=== PATIENT | female | born 1945 | race African-American/Black ===

== ENCOUNTER 2017-09-07 03:09 | Emergency (ER) | payer OTHER, BC ==
[2017-09-07 03:31] VITALS: BP 156/98; PULSE 78; TEMP 97.9; BMI 29.4
[2017-09-07] MEDS ORDERED: SODIUM CHLORIDE 0.9% 500 ML INFUS.BAG IV ONE (04:41)
--- NOTE | 2017-09-07 04:41 | PDOC ---
History of Present Illness - General History Source: Patient Exam Limitations: No Limitations - History of Present Illness Initial Comments: 09/07/17 06:01 Patient is a 72 year old female with a significant past medical history of thyroid problems, who presents to the ED with complaints of diffuse abdominal pain that began evening while at home. Patient reports eating a ham and cheese sandwich, stating she began to experience diffuse abdominal pain and associated diarrhea shortly after finishing the sandwich. She reports the symptoms continued all day saturday, prompting her to come into the ED for further evaluation. Denies chest pain, Sob. Denies nausea, vomiting. Denies contact with sick individuals, out of state travelling, Denies fevers, chills. Denies any other symptoms. Allergies: None Social history: No alcohol. No illicit drugs. No smoking. Surgical history: . Colonoscopy. PMD: dr. Josh Laguna <Evelio Yanes - Last Filed: 09/07/17 06:01> <Felicitas Tate - Last Filed: 09/07/17 20:35> - General Chief Complaint: Pain, Acute Stated Complaint: VOMITING, ABDOMINAL PAIN Time Seen by Provider: 09/07/17 04:11 Past History <Evelio Yanes - Last Filed: 09/07/17 06:01> - Suicide/Smoking/Psychosocial Hx Smoking History: Never smoked Have you smoked in the past 12 months: No Information on smoking cessation initiated: No Hx Alcohol Use: No Drug/Substance Use Hx: No <Felicitas Tate - Last Filed: 09/07/17 20:35> - Past Medical History Allergies/Adverse Reactions: Allergies Allergy/AdvReac Type Severity Reaction Status Date / Time No Known Allergies Allergy Verified 09/07/17 03:28 Home Medications: Ambulatory Orders Aspirin [Aspirin EC] 81 mg PO DAILY 09/07/17 Levothyroxine [Synthroid -] 75 mcg PO DAILY 09/07/17 Rosuvastatin [Crestor -] 5 mg PO DAILY 09/07/17 Review of Systems - Review of Systems Able to Perform ROS?: Yes Comments:: 09/07/17 06:01 GENERAL/CONSTITUTIONAL: No fever or chills. No weakness. HEAD, EYES, EARS, NOSE AND THROAT: No change in vision. No ear pain or discharge. No sore throat. CARDIOVASCULAR: No chest pain or shortness of breath. RESPIRATORY: No cough, wheezing, or hemoptysis. GASTROINTESTINAL: +Abdominal pain. +Diarrhea. No nausea, vomiting or constipation. GENITOURINARY: No dysuria, frequency, or change in urination. MUSCULOSKELETAL: No joint or muscle swelling or pain. No neck or back pain. SKIN: No rash NEUROLOGIC: No headache, vertigo, loss of consciousness, or change in strength/ sensation. ENDOCRINE: No increased thirst. No abnormal weight change. HEMATOLOGIC/LYMPHATIC: No anemia, easy bleeding, or history of blood clots. ALLERGIC/IMMUNOLOGIC: No hives or skin allergy. <Evelio Yanes - Last Filed: 09/07/17 06:01> *Physical Exam - Vital Signs Last Vital Signs Temp Pulse Resp BP Pulse Ox 97.9 F 78 20 156/98 99 09/07/17 03:28 09/07/17 03:28 09/07/17 03:28 09/07/17 03:28 09/07/17 03:28 - Physical Exam Comments: 09/07/17 06:01 GENERAL: Awake, alert, and fully oriented, in no acute distress HEAD: No signs of trauma EYES: PERRLA, EOMI, sclera anicteric, conjunctiva clear ENT: Auricles normal inspection, hearing grossly normal, nares patent, oropharynx clear without exudates. Moist mucosa NECK: Normal ROM, supple, no lymphadenopathy, JVD, or masses LUNGS: Breath sounds equal, clear to auscultation bilaterally. No wheezes, and no crackles HEART: Regular rate and rhythm, normal S1 and S2, no murmurs, rubs or gallops ABDOMEN: Soft, nontender, normoactive bowel sounds. No guarding, no rebound. No masses EXTREMITIES: Normal range of motion, no edema. No clubbing or cyanosis. No cords, erythema, or tenderness NEUROLOGICAL: Cranial nerves II through XII grossly intact. Normal speech, normal gait SKIN: Warm, Dry, normal turgor, no rashes or lesions noted. <Evelio Yanes - Last Filed: 09/07/17 06:01> - Vital Signs Last Vital Signs Temp Pulse Resp BP Pulse Ox 97.9 F 78 20 156/98 99 09/07/17 03:28 09/07/17 03:28 09/07/17 03:28 09/07/17 03:28 09/07/17 03:28 <Felicitas Tate - Last Filed: 09/07/17 20:35> ED Treatment Course - LABORATORY CBC & Chemistry Diagram: 09/07/17 05:50 09/07/17 05:50 <Felicitas Tate - Last Filed: 09/07/17 20:35> Medical Decision Making - Medical Decision Making 09/07/17 20:34 Pt comes with food posoning. Better in the ER with treatment and normal labs. Stable for d/c home. <Felicitas Tate - Last Filed: 09/07/17 20:35> *DC/Admit/Observation/Transfer - Attestations Scribe Attestion: 09/07/17 06:02 Documentation prepared by Evelio Yanes, acting as medical transcriber for Felicitas Tate MD/DO. <Evelio Yanes - Last Filed: 09/07/17 06:01> - Discharge Dispostion Admit: No <Felicitas Tate - Last Filed: 09/07/17 20:35> Diagnosis at time of Disposition: Food poisoning - Discharge Dispostion Disposition: HOME Condition at time of disposition: Improved - Referrals Referrals: Josh Laguna MD [Primary Care Provider] - - Patient Instructions Printed Discharge Instructions: DI for Food Poisoning - Post Discharge Activity
[2017-09-07] MEDS ORDERED: FAMOTIDINE 20 MG/50 ML IVPB 20 MG/50 ML MG IVPB ONE (05:34)
[2017-09-07 06:08] LABS: BASO % 0.6 % (0-2.0); EOS % 3.4 % (0-4.5); HEMATOCRIT 35.9 % (32.4-45.2); HEMOGLOBIN 12.4 GM/dL (10.7-15.3); MCH 29.3 pg (25.7-33.7); MCHC 34.4 g/dl (32.0-36.0); MEAN CELL VOLUME 85.2 fl (80-96); MEAN PLT VOLUME 8.4 fl (7.5-11.1); MONO % 7.3 % (3.8-10.2); NEUT % 66.7 % (42.8-82.8); PLATELET COUNT 259 K/MM3 (134-434); RBC 4.21 M/mm3 (3.60-5.2); RDW 15.9 % (11.6-15.6); URINE APPEARANCE CLEAR; URINE BILIRUBIN NEGATIVE (<2.0 mg/dL); URINE COLOR YELLOW; URINE GLUCOSE (UA) NEGATIVE (NEGATIVE); URINE KETONE NEGATIVE (NEGATIVE); URINE LEUK ESTERASE TRACE (NEGATIVE); URINE NITRITE NEGATIVE (NEGATIVE); URINE PROTEIN NEGATIVE (NEGATIVE); URINE UROBILINOGEN NEGATIVE mg/dL (0.2-1.0); WHITE BLOOD COUNT 10.5 K/mm3 (4.0-10.0)
[2017-09-07 06:12] LABS: EPI CELLS RARE /HPF (FEW); URINE MUCUS RARE
[2017-09-07 06:32] LABS: ALBUMIN 3.6 g/dl (3.4-5.0); ANION GAP 4 (8-16); BILIRUBIN,TOTAL 0.4 mg/dL (0.2-1.0); BLOOD UREA NITROGEN 13 mg/dL (7-18); CALCIUM 8.3 mg/dL (8.5-10.1); CHLORIDE 111 mmol/L (98-107); CO2 28 mmol/L (21-32); CREATININE 0.8 mg/dL (0.55-1.02); GLUCOSE,RANDOM 101 mg/dL (74-106); POTASSIUM 3.9 mmol/L (3.5-5.1); SGOT/AST 15 U/L (15-37); SGPT/ALT 24 U/L (12-78); SODIUM 143 mmol/L (136-145); TOT PROT 6.6 g/dl (6.4-8.2)
[2017-09-07 06:33] LABS: ALK PHOS 82 U/L (45-117)
[2017-09-07] MEDS ORDERED: LOPERAMIDE HCL 2 MG CAPSULE ONE (06:50)
[2017-09-07] MEDS ORDERED: LOPERAMIDE HCL 2 MG CAPSULE PO ONE (06:50)
[2017-09-07] MEDS ORDERED: FAMOTIDINE IV 20 MG/12 ML VIAL IVPUSH SCH (10:00)
== END 2017-09-07 07:00 | disposition home or self-care (01) ==
LOC: JER 03:09
PROC: 3E033GC Introduction of Other Therapeutic Substance into Peripheral Vein, Percutaneous Approach (ICD-10-PCS; principal; 2017-09-07)
DX: T62.8X1A Toxic effect of other specified noxious substances eaten as food, accidental (unintentional), initial encounter (principal); R10.9 Unspecified abdominal pain; R19.7 Diarrhea, unspecified; R11.0 Nausea; Y92.010 Kitchen of single-family (private) house as the place of occurrence of the external cause
CPT/HCPCS: 36415; 80053; 81003; 81015; 83690; 85025; 87086; 96365; 99281-25; 99283-25

== ENCOUNTER 2020-01-22 06:36 | Day surgery (SDC) | payer OTHER, BC ==
--- OUTSIDE RECORDS SUMMARY | 2020-01-18 15:07 | XMS ---
:1945 Author Organization [facility] Support Name Relationship Address Phone RE Unavailable Unavailable Unavailable SHALOM ORELLANA [address] [place] [address] Re-disclosure Warning The records that you are about to access may contain information from federally- assisted alcohol or drug abuse programs. If such information is present, then the following federally mandated warning applies: This information has been disclosed to you from records protected by federal confidentiality rules (42 CFR part 2). The federal rules prohibit you from making any further disclosure of this information unless further disclosure is expressly permitted by the written consent of the person to whom it pertains or as otherwise permitted by 42 CFR part 2. A general authorization for the release of medical or other information is NOT sufficient for this purpose. The Federal rules restrict any use of the information to criminally investigate or prosecute any alcohol or drug abuse patient.The records that you are about to access may contain highly sensitive health information, the redisclosure of which is protected by Article 27-F of the [facility] Public Health law. If you continue you may haveaccess to information: Regarding HIV / AIDS; Provided by facilities licensed or operated by the [facility] Office of Mental Health; or Provided by the [facility] Office for People With Developmental Disabilities. If such information is present, then the following [facility] mandated warning applies: This information has been disclosed to you from confidential records which are protected by state law. State law prohibits you from making any further disclosure of this information without the specific written consent of the person to whom it pertains, or as otherwise permitted by law. Any unauthorized further disclosure in violation of state law may result in a fine or correction sentence or both. A general authorization for the release of medical or other information is NOT sufficient authorization for further disclosure. Insurance Providers Payer name Policy type Policy ID Covered Covered green party's Policy P roland / Coverage green party ID relationship to [place] [facility] ormation type murray MEDICARE [id number] SP [id number] BC PPO [id number] SP [id number] GHI CBP [id number] SP [id number] 01 OUTPT 1 BC PPO [id number] SP [id number] MEDICARE [id number] SP [id number] A MEDICARE [id number] SP [id number] Results ID Date Data Source [id number] 11/30/2019 12:00:00 AM EDT [facility] Name Value Range Interpretation Code Description Data [place] rce(s) Supporting Document(s ) 2019-nCoV [facility] RNA XXX HANY+probe- Imp This lab was ordered by [facility] and reported by [employer] [facility]. Procedure Social History Code Duration Value Status Description Data Source(s ) Smoking Unknown if ever completed Unknown if ever Nael Tinoco smoked [facility]
--- OUTSIDE RECORDS SUMMARY | 2020-01-22 06:40 | XMS ---
:1945 Author Organization [facility] Support Name Relationship Address Phone RE, RETIRED Unavailable Unavailable Unavailable RE Unavailable Unavailable Unavailable SHALOM ORELLANA [address] [facility] [phone] [place] [phone] Re-disclosure Warning The records that you are [...] is protected by Article 27-F of the [facility] Public Health law. If you continue you may haveaccess to information: Regarding HIV / AIDS; Provided by facilities licensed or operated by the [facility] Office of Mental Health; or Provided by the [facility] Office for People With Developmental Disabilities. If such information is present, then the following [facility] mandated warning applies: This information has been [...] law may result in a fine or assisted sentence or both. A general authorization for the release of medical or other information is NOT sufficient authorization for further disclosure. Insurance Providers Payer name Policy type Policy ID Covered Covered constitution party's Policy P roland / Coverage constitution party ID relationship to [facility] [employer] ormation type robert MEDICARE [id number] SP [id number] BC PPO [id number] SP [id number] GHI CBP [id number] SP [id number] 01 OUTPT 1 BC PPO [id number] SP [id number] MEDICARE [id number] SP [id number] A MEDICARE [id number] SP [id number] Results ID Date Data Source [id number] 01/18/2020 03:15:00 PM EDT [facility] Name Value Range Interpretation Description Data Sup porting Code Source(s) Document(s ) SARS [facility] coronavirus 2 RNA This lab was ordered by [facility] and reported by [facility]. ID Date Data Source [id number] 11/30/2019 12:00:00 AM EDT [facility] Name Value Range Interpretation Code Description Data [place] rce(s) Supporting Document(s ) 2019-nCoV [facility] RNA XXX HANY+probe- Imp This lab was ordered by [facility] and reported by [facility]. Procedure Social History Code Duration Value Status Description Data Source(s ) Smoking Unknown if ever completed Unknown if ever Nael Tinoco smoked [facility]
[2020-01-22 07:49] VITALS: BMI 29.0
[2020-01-22 07:50] LABS: BASO % 0.7 % (0-2.0); HEMATOCRIT 37.6 % (32.4-45.2); HEMOGLOBIN 12.3 GM/dl (10.7-15.3); LYMPH % 21.2 % (8-40); MCH 29.3 pg (25.7-33.7); MCHC 32.8 g/dl (32.0-36.0); MEAN CELL VOLUME 89.3 fl (80-96); MEAN PLT VOLUME 8.4 fl (7.5-11.1); MONO % 5.3 % (3.8-10.2); NEUT % 67.8 % (42.8-82.8); PLATELET COUNT 306 K/MM3 (134-434); RBC 4.21 M/mm3 (3.60-5.2); RDW 14.9 % (11.6-15.6); WHITE BLOOD COUNT 7.6 K/mm3 (4.0-10.8)
[2020-01-22] MEDS ORDERED: ROPIVACAINE HCL 0.5% 30ML VIAL ONE (07:52)
[2020-01-22] MEDS ORDERED: MIDAZOLAM HCL 2 MG/2 ML SINGLE DOSE VIAL ONE ×2 (07:52→11:10)
[2020-01-22] MEDS ORDERED: oxyCODONE HCL 5 MG TABLET PO PRN ×3 (08:32→12:15)
[2020-01-22] MEDS ORDERED: IBUPROFEN 400 MG TABLET (FP) PO PRN (08:32)
[2020-01-22] MEDS ORDERED: ACETAMINOPHEN 325 MG TABLET (FP) PO PRN (08:32)
--- NOTE | 2020-01-22 08:32 | HP ---
History & Physical Update - History History: No Change - Physical Physical: No Change (Repeat WBC 7) - Assessment Assessment: No Change - Plan Plan: No Change
[2020-01-22] MEDS ORDERED: KETOROLAC TROMETHAMINE 30 MG/1 ML VIAL ONE (08:56)
[2020-01-22] MEDS ORDERED: DEXAMETHASONE SOD PHOSPHATE 4 MG/1 ML VIAL ONE (08:56)
[2020-01-22] MEDS ORDERED: ceFAZolin SODIUM 1 GM VIAL ONE (08:56)
[2020-01-22] MEDS ORDERED: ONDANSETRON 4 MG/2 ML VIAL ONE (08:56)
[2020-01-22] MEDS ORDERED: BUPIVACAINE HCL/PF 0.25% (2.5MG/ML) 10 ML VIAL IJ ONE (09:45)
[2020-01-22] MEDS ORDERED: LABETALOL HCL 5 MG/1 ML (100MG/20 ML VIAL) ONE (10:40)
[2020-01-22 16:57] VITALS: PULSE 84; TEMP 98
[2020-01-22 17:04] VITALS: BP 118/72
--- NOTE | 2020-01-22 18:26 | OPR ---
Procedure: Right Shoulder- 1. Diagnostic arthroscopy. 2. Arthroscopic extensive debridement of glenohumeral joint (62686). 3. Arthroscopic subacromial decompression (72808). 4. Arthroscopic rotator cuff repair: Supraspinatus (58954). 5. Arthroscopic-assisted biceps tenodesis-subpectoral (65386). 6. Arthroscopic capsular release, lysis and resection of adhesions (81605). Preoperative Diagnoses: 1. Rotator cuff tear. 2. Biceps tendon degeneration. 3. Glenohumeral synovitis. 4. Glenohumeral arthritis. 5. AC joint arthrosis 6. Adhesive Capsulitis Postoperative Diagnoses: 1. Rotator cuff tear-Supraspinatus, 1.5 mm x 2 mm 2. Biceps tendon degeneration and tear. 3. Labral degeneration and fraying; SLAP tear. 4. Chondromalacia of the glenohumeral joint. 5. Glenohumeral synovitis. 6. Subacromial bursitis and adhesions. 7. AC joint arthrosis 8. Adhesive Capsulitis Surgeon: Chad Jamison DO Assistants: Neil Montanez DO Anesthesia: General anesthesia, IV regional with interscalene nerve block Estimated Blood Loss: Minimal Drains: None Total IV Fluids: Per anesthesia record Specimens: None Implants: Prado and Nephew- (2) 5.5mm Healicoil PEEK [place], triple loaded with sutures Complications: None Disposition: PACU Condition: Hemodynamically stable Indications: Andra Medrano presented to us with chronic right shoulder pain that failed conservative measures. Her symptoms, signs, and imaging were consistent with the above noted diagnoses. She ultimately elected to proceed with surgical intervention after discussion of the risks, benefits, alternatives. We discussed risks including but not limited to, bleeding, pain, infection, scarring, damage to neurovascular structures, blood clots, pulmonary embolus, need for additional surgery, incomplete relief of pain, and incomplete return of function. She expressed understanding and wished to proceed. She underwent preoperative medical evaluation clearance and optimization prior to surgery. Procedure Details: She was identified in the preoperative area. The right shoulder was marked as the operative site and consent was completed and confirmed. A member of the anesthesia department performed an interscalene block in the preoperative holding area. She was later transferred to the operating room and placed in supine position the operating room. General anesthesia was induced without difficulty. She was repositioned into beach chair with all bony prominences appropriately padded. The neck was in neutral alignment. A surgical time-out was performed identifying the correct patient, procedure, and site. Antibiotics were given within 1 hour prior to surgical incision. The upper extremity was prepped and draped in standard sterile fashion. Examination under anesthesia: Passive range of motion of the right shoulder showed forward elevation of 150, abduction 80, external rotation at side 30, SABER 75, SABIR 30. This was compared to her contralateral shoulder which shows forward elevation of 170, abduction 100 external rotation at side 60, SABER 90, SABIR 30. Diagnostic arthroscopy: We began the procedure with the standard posterolateral portal, entered the glenohumeral joint, and an anterior portal was made within the rotator cuff interval under direct visualization with the assistance of a spinal needle. A probe was used to assist with diagnostic arthroscopy and we visualized from both posteriorly and anteriorly. Evaluation of the glenohumeral joint showed severe synovitis anteriorly, posteriorly and superiorly. The superior labrum had a degenerative tear that was debrided back to a stable base. The anterior labrum was probed and found to be frayed, but intact. The posterior labrum was probed and found to be frayed, but intact. There were no loose bodies in the inferior pouch. There was no HAGL lesion. The biceps tendon showed hyperemia. The rotator cuff interval was scarred. The axillary recess was empty. The subscapularis showed partial tearing involving less than 50% of the tendon; this was debrided to a stable base. The supraspinatus tendon was found to be torn from the greater tuberosity. The articular surface of the infraspinatus and teres minor tendons were intact. The glenoid and humeral head showed areas of grade I, II and III chondromalacia on the glenoid, and areas of I, II and III changes on the humeral head. Evaluation of the subacromial space showed severe bursitis and adhesions. There was a small acromial spur anteriorly. There was fraying of the CA ligament. The AC joint was arthritic with no significant spurs. The supraspinatus was found to be torn from the tuberosity. Arthroscopic extensive debridement of the glenohumeral joint: We used a combination of the arthroscopic motorized shaver and radiofrequency device to perform an extensive debridement inside the glenohumeral joint anteriorly and posteriorly. The hyperemia, erythema, and synovitis of the joint and joint capsule was aggressively debrided both anteriorly and posteriorly. Synovitic fronds were thermally ablated. Chondral degeneration was debrided to a stable edge. Labral fraying and degeneration was also resected and debrided to a stable edge anteriorly and posteriorly. The biceps tendon was tenotomized as it inserted into the superior labral complex and the remaining portion of the biceps tendon was allowed to retract into the bicipital groove. Arthroscopic capsular release/lysis of adhesions: Visualizing from posteriorly initially, we used the radiofrequency device to ablate and remove the scar tissue starting with the rotator cuff interval. We stayed lateral to the labrum, released the scar to the lateral surface of the coracoid, and then proceeded more laterally across the rotator interval, ablating the scar tissue all the way to the biceps desmond region. The subscapularis tendon was identified and carefully protected. The scar above it including the ligaments and capsular tissue was ablated just lateral to the labral margin and the scar tissue was resected. We carefully made our way more inferiorly, and with increasing resection we were able to achieve increasing external rotation and visualization inferiorly. We proceeded to the 5 o'clock position under direct visualization with release of the capsular tissue. We visualized the muscular fibers and subscapularis beneath this and protected it. After this, we thoroughly irrigated the joint. We then ranged the arm under visualization. The arm remained stable. Passive range of motion showed forward elevation of 170, abduction 100, external rotation at side 60, SABER 90, SABIR 30. There was no instability and there was excellent release of the capsular tissues. Arthroscopic-assisted biceps tenodesis: We made a 2 cm incision along Tank's lines in the axillary fold. Sharp dissection was carried out down to the level of the pectoralis major. The plane between the pectoralis major and the short head of biceps tendon was developed bluntly down to the level of the humeral bone, where we identified the long head of biceps tendon and delivered it retrograde out of the wound. The underlying soft tissue was resected and the bone was frayed with a 1/4-inch osteotome. We then selected a 1.9 SutureFix anchor and placed the anchor high within the bicipital groove underneath the pectoralis major tendon. The sutures were then passed just proximal to the musculotendinous junction of the long head of biceps in an alternating simple versus lasso loop configuration. Tying these sutures down tenodesed the tendon onto the underlying frayed humeral bone. We used an arthroscopic knot pusher to get excellent knot fixation, and then arthroscopic damage cutter to cut the remaining length of the suture. The remaining length of the biceps tendon was resected. We confirmed our arthroscopic knots and position of the biceps tendon underneath the pectoralis major with the arthroscope. We thoroughly irrigated the wound. The wound was closed in a buried, deep 2-0 Vicryl stitches, followed by a 3-0 Monocryl subcuticular stitch and then Dermabond skin glue. Arthroscopic subacromial decompression: The subacromial space was entered from posteriorly. Separate anterior-lateral portal and posterior-lateral portal were made for additional instrumentation and visualization. We then visualized the rotator cuff pattern as noted above, and performed our subacromial decompression in a systematic fashion from anterior to posterior and from lateral to medial, removing the bursal tissue carefully. This was done with a radiofrequency device and motorized shaver. The undersurface of the acromion was skeletonized and gently debrided to a flat smooth undersurface. There was a small anterior- inferior spur that was resected with a motorized bur. Arthroscopic rotator cuff repair: We turned our attention to rotator cuff repair of the supraspinatus and infraspinatus. We debrided the remnant tissue over the greater tuberosity and debrided frayed tissue from the rotator cuff tendon edge. We debrided the greater tuberosity with a motorized bur to slightly decorticate it, preparing a bony bed to receive the rotator cuff tendon. We used two triple loaded 5.5 mm Prado and Nephew PEEK helicoil anchors for repair of the rotator cuff and it was placed it in the rotator cuff footprint. It had excellent fixation within the bone. The sutures from the anchor were then passed through the supraspinatus and infraspinatus with the tissue-piercing Firstpass, approximately 1.5 cm from its torn edge in a crescentic pattern. Sutures were then shuttled appropriately through the cannulas and arthroscopic knots were tied with a knot pusher. We promoted some localized bone bleeding and marrow elements with an awl in the lateral aspect of the greater tuberosity. Wound closure: The arthroscopic portal incisions were closed with 3-0 Nylon suture. The axillary incision was irrigated and closed with 2-0 Vicryl, 3-0 Monocryl subcuticular stitch, and Dermabond skin glue. The shoulder was sterilely dressed and the arm was placed in a shoulder immobilizer. Post-operative Details: I spoke with the family regarding the operation after surgery. Postoperative rehabilitation: Arthroscopic rotator cuff repair protocol. The patient will remain in a shoulder immobilizer for 6 weeks. Early passive range of motion okay with no limits and advance as tolerated; no pendulums. No strengthening for at least 5 months. Attestation for rn first assist: Dr. Neil Montanez DO acted as the rn first assist. There was no qualified resident or physician paralegal assistant available to do so.
--- NOTE | 2020-01-26 17:15 | PATH ---
Surgical Pathology Report Patient Name: VJ ORELLANA Med. Rec. #: [id number] /Age/Gender: 1945 (Age: 74) / F Account: [id number] Location: [facility] AM[facility] Taken: 01/22/2020 Received: 01/22/2020 Reported: 01/26/2020 Physicians: Chad Jamison DO Specimen(s) Received SHAVINGS RIGHT SHOULDER Clinical History Right shoulder rotator cuff tear, biceps tendonopathy, stiffness Final Diagnosis RIGHT SHOULDER SHAVINGS: FIBROCARTILAGINOUS AND SYNOVIAL TISSUE WITH REACTIVE CHANGE. SKELETAL MUSCLE, BLOOD CLOT AND FIBRINOUS EXUDATE PRESENT. Electronically Signed Pedro Pabon M.D. Gross Description Received in formalin labeled "right shoulder shavings," is a 3.0 x 2.2 x 0.4 cm aggregate of lee-brown soft tissue fragments admixed with blood clot. A premium service representative portion is submitted in one cassette. /01/25/2020 [facility]01/25/2020
== END 2020-01-22 14:55 | disposition home or self-care (01) ==
LOC: FASU 06:36
PROVIDERS: ATTEND Orthopaedic Surgery
PROC: 0RNJ4ZZ Release Right Shoulder Joint, Percutaneous Endoscopic Approach (ICD-10-PCS; 2020-01-22)
PROC: 0RBJ4ZZ Excision of Right Shoulder Joint, Percutaneous Endoscopic Approach (ICD-10-PCS; 2020-01-22)
PROC: 0LS30ZZ Reposition Right Upper Arm Tendon, Open Approach (ICD-10-PCS; 2020-01-22)
PROC: 0LQ14ZZ Repair Right Shoulder Tendon, Percutaneous Endoscopic Approach (ICD-10-PCS; principal; 2020-01-22 09:17)
PROC: 0LS34ZZ Reposition Right Upper Arm Tendon, Percutaneous Endoscopic Approach (ICD-10-PCS; 2020-01-22 09:17)
DX: M75.111 Incomplete rotator cuff tear or rupture of right shoulder, not specified as traumatic (principal); M66.811 Spontaneous rupture of other tendons, right shoulder; M94.211 Chondromalacia, right shoulder; M75.01 Adhesive capsulitis of right shoulder; M19.011 Primary osteoarthritis, right shoulder; M75.51 Bursitis of right shoulder; M65.811 Other synovitis and tenosynovitis, right shoulder; S43.431A Superior glenoid labrum lesion of right shoulder, initial encounter; X58.XXXA Exposure to other specified factors, initial encounter; Y93.9 Activity, unspecified; Y92.9 Unspecified place or not applicable
CPT/HCPCS: 36415; 82962; 85025; 88304-TC; 94760

== ENCOUNTER → 2021-01-27 | Day surgery (SDC) | payer OTHER, BC | END | disposition home or self-care (01) | LOC: JRADIR 09:07 | PROVIDERS: ATTEND Internal Medicine Endocrinology, Diabetes & Metabolism | PROC: 0G9K3ZX Drainage of Thyroid Gland, Percutaneous Approach, Diagnostic (ICD-10-PCS; principal; 2021-01-27) | DX: E04.1 Nontoxic single thyroid nodule (principal) | CPT/HCPCS: 10005; 76942; 88173; 88305-TC ==

== ENCOUNTER 2021-11-01 06:28 | Day surgery (SDC) | payer OTHER, BC ==
[2021-10-26 12:26] VITALS: BMI 28.9
[2021-11-01 07:11] VITALS: TEMP 97.8
[2021-11-01] MEDS ORDERED: LIDOCAINE HCL 2% (20ML MULTI-DOSE VIAL) ONE (07:12)
[2021-11-01] MEDS ORDERED: BUPIVACAINE HCL/PF 2.5 MG/ML - 30 ML VIAL IJ ONE (07:12)
[2021-11-01] MEDS ORDERED: MIDAZOLAM HCL 2 MG/2 ML SINGLE DOSE VIAL ONE (08:11)
[2021-11-01] MEDS ORDERED: PROPOFOL 20 ML ONE (08:21)
[2021-11-01] MEDS ORDERED: ONDANSETRON 4 MG/2 ML VIAL ONE (08:29)
[2021-11-01] MEDS ORDERED: DEXAMETHASONE SOD PHOSPHATE 4 MG/1 ML VIAL ONE (08:29)
[2021-11-01 09:38] VITALS: BP 110/59; PULSE 63
== END 2021-11-01 09:43 | disposition home or self-care (01) ==
LOC: FASU 06:28
PROVIDERS: ATTEND Orthopaedic Surgery Hand Surgery
PROC: 0LN70ZZ Release Right Hand Tendon, Open Approach (ICD-10-PCS; principal; 2021-11-01 08:29)
DX: M65.331 Trigger finger, right middle finger (principal)
CPT/HCPCS: 82962

== ENCOUNTER 2023-10-24 10:19 | Emergency (ER) | payer OTHER, BC ==
[2023-10-24 10:36] VITALS: BP 142/77; PULSE 65; RESP 20; TEMP 98; BMI 31.5
== END 2023-10-24 11:12 | disposition home or self-care (01) ==
LOC: FER 10:19
DX: R21 Rash and other nonspecific skin eruption (principal); L29.9 Pruritus, unspecified
CPT/HCPCS: 99282-25